=== PATIENT | female | born 1975 | race Caucasian/White ===

== ENCOUNTER 2016-07-15 10:26 | Emergency (ER) | payer BC, OTHER ==
[~2016-07-15] VITALS: Ht 167.6 cm; Wt 65.0 kg
[2016-07-15 10:29] VITALS: BP 120/73; PULSE 65; RESP 14; TEMP 98.9; O2SAT 100
[2016-07-15 10:50] VITALS: BP 146/72; PULSE 65; RESP 18; O2SAT 99
[2016-07-15] MEDS ORDERED: SODIUM CHLOR 0.9% 1000 ML INJ 1,000 ML IV SCH (11:01)
--- NOTE | 2016-07-15 11:07 | PD ---
HPI Chief Complaint: Abdominal Pain Time Seen by Provider: 11:06 Travel History International Travel<30 days: No Contact w/Intl Traveler<30days: No Traveled to known affect area: No History of Present Illness HPI Patient is an otherwise healthy 41-year-old female with chief complaint of lower abdominal pain and low back pain. She states that for the last several months she has been having heavier than normal. And this has been accompanied with lower abdominal discomfort. Musculature. Again Thursday and is almost over. Bar flow at this point. Patient states the pain is aching and cramping in nature in the bilateral lower quadrants and suprapubic regions. Fairly constant. It has improved somewhat but last evening she began having low back pain accompanying it. It is 8 out of 10 in severity. It is constant. She cannot characterize it but states that it is constant and painful and very hard for her to get comfortable. It does not radiate. She denies bowel or bladder dysfunction, saddle anesthesia, weakness or paresthesias in her lower Shoney's. She denies dysuria but increased to increased urinary urgency or frequency. She had some episodes of nausea with 2 episodes of nonbloody emesis yesterday. No nausea currently. She denies any vaginal discharge other than her normal increased menstrual flow in the sexually active only with her who has had a vasectomy denies . She denies any appetite reduction, food intolerance, belching, diarrhea, constipation, melena or hematochezia. She states yesterday she didn't feel that she had some chills and was "warm" but denies fevers. History of appendectomy and 2. Of note she is from [place] and states her STAFF NURSE ANESTHETIST is in [place]. She saw them this past summer and was told that heavier than normal periods will be usual for her. She has a "thickened uterus ". [facility] Past Medical History Medical History: Denies Significant Hx Tetanus Vaccination: < 5 Years Influenza Vaccination: No ?: Not : 2 Para: 2 Miscarriage: 0 : 0 Past Surgical History Abdominal Surgery: Yes (FREDDIE OLIVAREZ ) Appendectomy: Yes Section: Yes (X 2) Gynecologic Surgery: Yes ( X 2 ) Social History Alcohol Use: Yes ("A GLASS OR TWO OF WINE OR BEER NIGHTLY") Tobacco Use: No Substance Use: No Allergies-Medications (Allergen,Severity, Reaction): Coded Allergies: No Known Allergies (Unverified , 07/15/16) Reported Meds & Prescriptions Reported Meds & Active Scripts Active Naproxen 500 Mg Tab 500 Mg PO BID Doxycycline Hyclate 100 Mg Cap 100 Mg PO BID Flagyl (Metronidazole) 500 Mg Tab 500 Mg PO Q12HR Review of Systems Except as stated in HPI: all other systems reviewed are Neg Physical Exam Narrative GENERAL: Well-developed and well-nourished adult female in moderate pain. No acute distress. SKIN: Warm and dry. Good turgor without tenting. HEAD: Normocephalic and atraumatic. EYES: PERRL bilaterally, 5mm. EOMI bilaterally. No injection or icterus present. No proptosis. Lids without edema or erythema. ENT: Buccal mucosa pink and moist. Oropharynx free of erythema, tonsillar hypertrophy, masses, swelling, asymmetry and exudates. Uvula midline and airway patent. NECK: Supple, no meningeal signs. Trachea midline, no JVD. No cervical or facial lymphadenopathy. CARDIOVASCULAR: Regular rate and rhythm without murmurs, rubs, clicks or gallops. Radial and posterior tibial pulses 2+ bilaterally. No pedal edema. RESPIRATORY: Clear to auscultation bilaterally with symmetrical rise and fall, no distress or use of accessory muscles. GASTROINTESTINAL: Non-tender, non-distended. No pain at McBurney's point. Negative Rovsing sign. Normal bowel sounds all 4 quadrants. No masses or organomegaly present. Right CVA tenderness present. : External genitalia without lesions or discharge visible. Speculum exam reveals small amount of yellow-green frothy discharge in the vaginal floor, no blood or tissue. Cervix has no lesions and the os is closed. No discharge emanating from the cervix. No cervical motion tenderness. No adnexal tenderness or masses. MUSCULOSKELETAL: Patient's has mild tenderness of the parasacral muscles bilaterally without lumbar sacral midline tenderness, crepitus or step-offs. Patient freely moving all four extremities spontaneously. Extremities without clubbing, cyanosis, or edema. No obvious deformities. NEUROLOGIC: CN II-XII grossly intact. Awake and alert. Motor grossly within normal limits. Normal speech. PSYCHIATRIC: Appropriate mood and affect; insight and judgment normal. *Patient was examined in the presence of a nurse, Ayse, at all times* Data Data Last Documented VS Vital Signs Date Time Temp Pulse Resp B/P Pulse Ox O2 Delivery O2 Flow Rate FiO2 07/15/16 13:30 59 16 118/67 99 Room Air 07/15/16 10:29 98.9 Orders Complete Blood Count With Diff (07/15/16 11:01) Comprehensive Metabolic Panel (07/15/16 11:01) Lipase (07/15/16 11:01) Prothrombin Time / Inr (Pt) (07/15/16 11:01) Act Partial Throm Time (Ptt) (07/15/16 11:01) Urinalysis - C+S If Indicated (07/15/16 11:01) Ct Abd/Pel W Iv Contrast(Rout) (07/15/16 11:01) Iv Access Insert/Monitor (07/15/16 11:01) Ecg Monitoring (07/15/16 11:01) Oximetry (07/15/16 11:01) NPO (07/15/16 11:01) Morphine Inj (Morphine Inj) (07/15/16 11:15) Ondansetron Inj (Zofran Inj) (07/15/16 11:15) Sodium Chlor 0.9% 1000 Ml Inj (Ns 1000 M (07/15/16 11:01) Ed Urine Pregnancytest Poc (07/15/16 11:01) Gc And Chlamydia Pcr (07/15/16 11:01) Wet Prep Profile (07/15/16 11:01) Iohexol 350 Inj (Omnipaque 350 Inj) (07/15/16 12:36) Ketorolac Inj (Toradol Inj) (07/15/16 13:45) Ceftriaxone Inj (Rocephin Inj) (07/15/16 14:00) Labs Laboratory Tests Test 07/15/16 07/15/16 11:20 13:40 White Blood Count 5.6 TH/MM3 Red Blood Count 4.70 MIL/MM3 Hemoglobin 14.1 GM/DL Hematocrit 41.2 % Mean Corpuscular Volume 87.7 FL Mean Corpuscular Hemoglobin 30.0 PG Mean Corpuscular Hemoglobin 34.2 % Concent Red Cell Distribution Width 14.5 % Platelet Count 322 TH/MM3 Mean Platelet Volume 8.4 FL Neutrophils (%) (Auto) 46.9 % Lymphocytes (%) (Auto) 39.9 % Monocytes (%) (Auto) 8.9 % Eosinophils (%) (Auto) 3.7 % Basophils (%) (Auto) 0.6 % Neutrophils # (Auto) 2.6 TH/MM3 Lymphocytes # (Auto) 2.2 TH/MM3 Monocytes # (Auto) 0.5 TH/MM3 Eosinophils # (Auto) 0.2 TH/MM3 Basophils # (Auto) 0.0 TH/MM3 CBC Comment DIFF FINAL Differential Comment Prothrombin Time 11.4 SEC Prothromb Time International 1.0 RATIO Ratio Activated Partial 25.2 SEC Thromboplast Time Urine Color LIGHT-YELLOW Urine Turbidity CLEAR Urine pH 7.0 Urine Specific [place] 1.005 Urine Protein NEG mg/dL Urine Glucose (UA) NEG mg/dL Urine Ketones NEG mg/dL Urine Occult Blood NEG Urine Nitrite NEG Urine Bilirubin NEG Urine Urobilinogen LESS THAN 2.0 MG/DL Urine Leukocyte Esterase NEG Urine RBC 1 /hpf Urine WBC 2 /hpf Urine Squamous Epithelial 2 /hpf Cells Microscopic Urinalysis Comment CULT NOT INDICATED Sodium Level 140 MEQ/L Potassium Level 3.8 MEQ/L Chloride Level 106 MEQ/L Carbon Dioxide Level 25.2 MEQ/L Anion Gap 9 MEQ/L Blood Urea Nitrogen 5 MG/DL Creatinine 0.78 MG/DL Estimat Glomerular Filtration 82 ML/MIN Rate Random Glucose 89 MG/DL Calcium Level 8.5 MG/DL Total Bilirubin 0.5 MG/DL Aspartate Amino Transf 14 U/L (AST/SGOT) Alanine Aminotransferase 19 U/L (ALT/SGPT) Alkaline Phosphatase 71 U/L Total Protein 7.6 GM/DL Albumin 3.9 GM/DL Lipase 160 U/L Clue Cells (Wet Prep) PRESENT Vaginal Trichomonas (Wet Prep) NONE SEEN Vaginal Yeast (Wet Prep) NONE SEEN MDM Medical Decision Making Medical Screen Exam Complete: Yes Emergency Medical Condition: Yes Differential Diagnosis Menorrhagia versus uterine fibroids versus PID versus ectopic versus pyelonephritis versus cystitis versus renal calculi versus AAA versus low back strain Narrative Course Patient's a 41-year-old female who is afebrile and nontoxic appearing with presumably a history of fibroids and menorrhagia for the last 6 months or so who states she's had a heavier than normal period over the last 4 days which seems to be abating however last evening she began having low back pain. She's had some nausea and vomiting as well as subjective fever and chills yesterday. Seemed to have resolved. She endorses increased urinary urgency and frequency but denies dysuria. She has right CVA tenderness. Abdomen is benign on exam. She is neurovascularly intact lower extremities. She was given morphine, Zofran and normal saline bolus. UPT negative. CBC shows WBC 5.6. H&H 14.1/ 41.2. Urinalysis unremarkable. Metabolic panel shows creatinine 0.78, BUN 5. AST 14, ALT 19, ALP 71. Pelvic exam small amount of frothy green and yellow discharge. CT shows mild ovarian cysts. Moderate amount of stool without signs of obstruction. Conferred with Dr. Connell who suggested treat with Doxycycline and Flagyl prescriptions, Ceftriaxone here. Wet prep positive for clue cells. Recommended for the patient increase fluid consumption and use stool softeners as well.See discharge paperwork for further instructions. The plan was discussed with the patient who acknowledged their understanding and agreement. Reinforced the follow-up with primary care is critically important. Patient instructed on emergent conditions that should prompt return to ED. Diagnosis Primary Impression: Bacterial vaginitis Additional Impressions: Constipation Qualified Code: K59.00 - Constipation, unspecified constipation type Low back pain Qualified Code: M54.5 - Acute bilateral low back pain without sciatica Patient Instructions: Acute Low Back Pain (ED), Bacterial Vaginosis (ED), Constipation (ED), General Instructions Additional Instructions: Take medications as prescribed Recommend pelvic rest/no intercourse until follow-up with [facility] this week Because of fluids and stay well-hydrated Use stool softeners and laxatives as needed for constipation Follow-up with [facility] this week Return to the ED for any acute worsening of symptoms Med/Other Pt SpecificInfo: Prescription(s) given Scripts Naproxen 500 Mg [id number] Mg PO BID #10 TAB Prov:Shahab Connell MD 07/15/16 Doxycycline Hyclate 100 Mg [id number] Mg PO BID #14 CAP Ref 0 Prov:Shahab Connell MD 07/15/16 Metronidazole (Flagyl)500 Mg Vfs282 Mg PO Q12HR #14 TAB Ref 0 Prov:Shahab Connell MD 07/15/16 Disposition: DISCHARGE HOME Condition: Stable Bao Bates III Jul 15, 2016 11:07
[2016-07-15] MEDS ORDERED: ONDANSETRON HCL 4 MG/2 ML VIAL IVP ONE (11:15)
[2016-07-15] MEDS ORDERED: MORPHINE SULFATE 4 MG/ML INJ IV PUSH ONE (11:15)
[2016-07-15 11:37] LABS: AUTOMATED NEUTROPHIL # 2.6 TH/MM3 (1.8-7.7); BASOPHIL % 0.6 % (0.0-2.0); EOSINOPHIL # 0.2 TH/MM3 (0-0.4); EOSINOPHIL % 3.7 % (0.0-4.0); HEMATOCRIT 41.2 % (35.0-46.0); HEMO FLAGS DIFF FINAL; LYMPH % 39.9 % (9.0-44.0); LYMPHOCYTE # 2.2 TH/MM3 (1.0-4.8); MEAN CELL VOLUME 87.7 FL (80.0-100.0); MEAN CORPUSCULAR HGB CONC 34.2 % (32.0-36.0); MONO % 8.9 % (0.0-8.0); NEUT % 46.9 % (16.0-70.0); PLATELET COUNT 322 TH/MM3 (150-450); RED CELL DISTRIBUTION WIDTH 14.5 % (11.6-17.2); WHITE BLOOD COUNT 5.6 TH/MM3 (4.0-11.0)
[2016-07-15 11:44] LABS: BLOOD, URINE NEG (NEG); GLUCOSE,URINE NEG (NEG); KETONE, URINE NEG (NEG); NITRITE,URINE NEG (NEG); SQUAMOUS EPITHELIAL CELL URINE 2 /hpf (0-5); URINE COLOR LIGHT-YELLOW (YELLW/STRAW)
[2016-07-15 11:48] LABS: APTT (PATIENT) 25.2 SEC (24.3-30.1); PROTHROMBIN TIME - PATIENT 11.4 SEC (9.8-11.6)
[2016-07-15 11:49] LABS: COMMENT (UR) CULT NOT INDICATED; CULTURE IF INDICATED CULT NOT INDICATED
[2016-07-15 12:02] LABS: ALKALINE PHOSPHATASE 71 U/L (45-117); ALT (GPT) 19 U/L (10-53); ANION GAP 9 MEQ/L (5-15); AST (GOT) 14 U/L (15-37); BICARBONATE 25.2 MEQ/L (21.0-32.0); BLOOD UREA NITROGEN 5 MG/DL (7-18); CHLORIDE 106 MEQ/L (98-107); GLOMERULAR FILTRATION RATE 82 ML/MIN (>89); POTASSIUM 3.8 MEQ/L (3.5-5.1); SODIUM (NA) 140 MEQ/L (136-145); TOTAL BILIRUBIN ADULT 0.5 MG/DL (0.2-1.0)
[2016-07-15] MEDS ORDERED: IOHEXOL 350 MG/ML 10 ML VIAL (for RAD DIAG) IV ONE (12:36)
[2016-07-15 13:30] VITALS: BP 118/67; PULSE 59; PULSE 72; RESP 16; O2SAT 99
[2016-07-15] MEDS ORDERED: KETOROLAC TROMETHAMINE 30 MG/ML (IVP) VIAL IV PUSH ONE (13:45)
--- NOTE | 2016-07-15 13:45 | RADRPT ---
EXAM DATE/TIME: 07/15/2016 12:22 [facility] COMPARISON: No previous studies available for comparison. INDICATIONS: Pelvic and lower back pain since yesterday. IV CONTRAST: 92 cc Omnipaque 350 (iohexol) IV ORAL CONTRAST: No oral contrast ingested. RADIATION DOSE: 9.96 CTDIvol (mGy) MEDICAL HISTORY: None SURGICAL HISTORY: Appendectomy. section. ENCOUNTER: Initial ACUITY: 1 day PAIN SCALE: 10/10 LOCATION: Bilateral lower quadrant TECHNIQUE: Volumetric scanning of the abdomen and pelvis was performed. Using automated exposure control and ad justment of the mA and/or kV according to patient size, radiation dose was kept as low as reasonably achievable to obtain optimal diagnostic quality images. FINDINGS: The liver, spleen, pancreas, adrenal glands and kidneys are normal. The aorta and IVC are unremarkab le. There is a moderate amount of stool seen throughout the colon. There is fluid filled bowel seen in the adnexal regions. There also appears to be some mild cystic change best seen on the coronal i mages at the ovaries. The ovaries do not appear significantly enlarged for the patient's age. Free fluid is not seen. The abdominal wall appears intact. There is some minimal suspected atelectasis a t the right lung base. The bony structures are grossly intact. CONCLUSION: No definite acute abnormality is seen. Bao Pham MD on July 15, 2016 at 13:25 Board Certified Radiologist. This report was verified electronically.
[2016-07-15] MEDS ORDERED: METR-1 PO (13:52)
[2016-07-15] MEDS ORDERED: DOXY100C PO (13:52)
[2016-07-15] MEDS ORDERED: NAPR500T PO (13:57)
[2016-07-15] MEDS ORDERED: cefTRIAXone INJ 1,000 MG in SODIUM CHLORIDE 0.9% INJ 100 ML IV ONE (14:00)
[2016-07-15 17:29] LABS: CHLAMYDIA PCR NOT DETECTED (NOT DETECT); NEISSERIA PCR NOT DETECTED (NOT DETECT)
== END 2016-07-15 14:58 | disposition home or self-care (01) ==
LOC: NEPA 10:26
DX: N76.0 Acute vaginitis (principal); K59.00 Constipation, unspecified; M54.5 Low back pain; R39.15 Urgency of urination; R11.2 Nausea with vomiting, unspecified
CPT/HCPCS: 74177; 80053; 81001; 83690; 84703; 85025; 85610; 85730; 87210; 87491; 87591; 96361; 96365; 96375; 99284; J0696; J1885; J2270; J2405; J7030; Q9967